=== PATIENT | female | born 2000 | race Asian ===

== ENCOUNTER → 2024-08-20 | Emergency (ER) | payer OTHER ==
[~2024-08-20] VITALS: Ht 154.9 cm; Wt 69.0 kg
[~2024-08-20] MED LIST: IBUP-1492 PO
[2024-08-20 15:46] VITALS: TEMP 98.6
[2024-08-20] MEDS: KETOROLAC TROMETHAMINE 30 MG/ML VIAL IM ONE (19:49)
[2024-08-20 21:34] VITALS: BP 109/8; PULSE 98; RESP 16; O2SAT 97
== END | disposition still patient (30) ==
LOC: EMS 15:37
DX: S46.912A Strain of unspecified muscle, fascia and tendon at shoulder and upper arm level, left arm, initial encounter (principal); V89.2XXA Person injured in unspecified motor-vehicle accident, traffic, initial encounter; Y93.89 Activity, other specified; Y92.410 Unspecified street and highway as the place of occurrence of the external cause; Y99.8 Other external cause status
CPT/HCPCS: 96372; 99283; J1885